=== PATIENT | male | born 1980 | race Caucasian/White ===

== ENCOUNTER 2024-04-21 11:43 | Emergency (ER) | payer OTHER, SELFPAY ==
--- NOTE | 2024-04-21 11:46 | ED.GENMED ---
ED Provider Triage
<Asha Arora PA-C - Last Filed: 04/21/24 11:49>
-
Patient seen by provider in Triage?: Seen in Triage
Attestation: A medical screening examination has been initiated by a qualified medical provider. Based on the assessment performed at this time, it has been determined that an emergent medical condition may exist and the patient has been informed
that further medical evaluation and possible additional diagnostic testing may be needed.
HPI: 44yoM here with R eye pain after an injury <2 hours ago. He believes a low hanging tree limb hit his eye while he was mowing grass. C/o severe eye pain. Believes he has a scratch or a FB.
GENERAL: Alert , in no apparent distress
EYE: No visual abnormalities.
NECK: Trachea midline
ENT: No visible abnormalities.
LUNGS: No acute respiratory distress
NEUROLOGICAL: Alert and oriented
SKIN: Skin intact. No visible changes.
MUSCULOSKELETAL: Moving extremities normally
PSYCH: Normal and appropriate interaction.
This is a medical evaluation conducted in person to initiate diagnostic evaluation and provide initial therapeutics. Please see further documentation by the treating clinician.
No clinical signs of globe rupture noted.
History of Present Illness
<Asha Arora PA-C - Last Filed: 04/21/24 11:49>
General
Chief Complaint: Eye Problems
Time Seen by Provider: 04/21/24 13:24
<KENNETH Ibarra - Last Filed: 04/21/24 14:44>
General
Source: patient
Exam Limitations: none
Nursing documentation reviewed up to this point in time: agreed with
History of Present Illness
History of Present Illness:
Patient is a 43-year-old male who presents to the ER for evaluation of right eye pain and injury. Patient was welding the grass and believes a branch poked him in his right eye. He complains of right eye irritation. Patient denies any decreased
vision. Patient denies any foreign body sensation.
Patient does not wear contacts/glasses .
Past History
<Asha Arora PA-C - Last Filed: 04/21/24 11:49>
Past History
ED Past Medical History: None
Social History
Living: with family
Employment: Employed
Review of Systems
<KENNETH Ibarra - Last Filed: 04/21/24 14:44>
Review of Systems
Allergies reviewed?: Yes
All Other Systems: ROS reviewed and negative except as documented in HPI and ROS
Constitutional: Reports no symptoms
EENT: Reports other (right eye irritation )
Musculoskeletal: Reports no symptoms
Skin: Reports no symptoms
Neurological: Reports no symptoms
Psychiatric: Reports no symptoms
Phy Exam
<KENNETH Ibarra - Last Filed: 04/21/24 14:44>
General Physical Exam
General Presentation: no apparent distress
General age: appears stated age
General Skin: warm and dry
General Habitus: normal
General Mental: alert
General Hydration: appears well hydrated
Eye Exam
Eye Exam: PERRL, EOMI and other (Right eye very injected on exam, with fluorescein there is an obvious corneal abrasion vertical in nature at the 12 o'clock position; lid inverted no foreign body under lid)
Eye Exam General: PERRL: bilateral and EOM intact: bilateral
Pupil Exam: Bilateral: round and reactive
Neurological Exam
Neurological Exam: alert and oriented x3
[place] Coma Scale
Eye Opening: Spontaneous
Verbal Response: Oriented
Motor Response: Obeys Commands
GCS Total Score: 15
Skin Exam
Skin Exam: normal color and warm/dry
Psychiatric Exam
Psychiatric Exam: normal mood/affect
Course
<Asha Arora PA-C - Last Filed: 04/21/24 11:49>
Orders/Labs/Results
Orders:
Orders
04/21/24 14:31
Erythromycin (Ilotycin) [Erythromycin 0.5% Ophthalmic Ointment] See Dose Instructions OPHTH NOW STA
04/21/24 14:32
Visual Acuity- Treatment ONCE
Ibuprofen [Motrin] 600 mg PO NOW STA
Vital Signs
Initial and Last Documented VS:
Initial Vital Signs
Temp Pulse Resp BP Pulse Ox
98.8 F 83 18 124/74 98
04/21/24 11:47 04/21/24 11:47 04/21/24 11:47 04/21/24 11:47 04/21/24 11:47
Last Documented Vital Signs
Temp Pulse Resp BP Pulse Ox
98.8 F 83 18 124/74 98
04/21/24 11:47 04/21/24 11:47 04/21/24 11:47 04/21/24 11:47 04/21/24 11:47
<KENNETH Ibarra - Last Filed: 04/21/24 14:44>
Orders/Labs/Results
Orders:
Orders
04/21/24 14:31
Erythromycin (Ilotycin) [Erythromycin 0.5% Ophthalmic Ointment] See Dose Instructions OPHTH NOW STA
04/21/24 14:32
Visual Acuity- Treatment ONCE
Ibuprofen [Motrin] 600 mg PO NOW STA
Vital Signs
Initial and Last Documented VS:
Initial Vital Signs
Temp Pulse Resp BP Pulse Ox
98.8 F 83 18 124/74 98
04/21/24 11:47 04/21/24 11:47 04/21/24 11:47 04/21/24 11:47 04/21/24 11:47
Last Documented Vital Signs
Temp Pulse Resp BP Pulse Ox
98.8 F 83 18 124/74 98
04/21/24 11:47 04/21/24 11:47 04/21/24 11:47 04/21/24 11:47 04/21/24 11:47
<KENNETH Ibarra - Last Filed: 04/21/24 14:44>
MDM/Problems Addressed
Differential Diagnosis Includes:
Not limited to foreign body, corneal abrasion less likely globe injury less likely hyphema
MDM/Problems Addressed:
Patient with corn abrasion to the right eye as documented no foreign body. Tetanus is up to date. Will DC with ibuprofen and erythromycin ointment with close outpatient provide ophthalmology
<KENNETH Ibarra - Last Filed: 04/21/24 14:44>
*Critical Care Note
Total Time (30-74mins, 75-104mins- exclusive of procedures): Not Applicable
ED Attending Note
<Asha Arora PA-C - Last Filed: 04/21/24 11:49>
-
Portions of this chart may have been created with voice recognition software.� Occasional wrong word or��sound alike� substitutions may have occurred due to the inherent limitations of voice recognition software.
Discharge Plan
Departure
Patient Disposition: Home (Routine Discharge)
Date of Disposition: 04/21/24
Time of Disposition: 14:37
Patient with high blood pressure during this ER visit?: No
Condition: Fair
Covid-19: Not Applicable
Discharge Problem:
Corneal abrasion
Instructions: Corneal Abrasion (DC)
Prescriptions:
New
erythromycin 5 mg/gram (0.5 %) ointment
1 applic ophthalmic (eye) Q6H Qty: 3.5 0RF
Rx Instructions:
Apply 1/2 inch of ointment into right eye 4 times daily
Referrals:
Sulema Alfaro MD [Active] -
NONE,* [Family Provider] -
Activity Restrictions/Additional Instructions:
As discussed you have a corneal abrasion. You were given the first dose erythromycin ophthalmic ointment here in the ER.
A prescription was sent to your pharmacy take as directed every 6 hours. You may also take ibuprofen as needed for discomfort and apply cool compress. Follow-up with ophthalmology in the next several days for reevaluation and recheck of your
symptoms. Please call today to make an appointment. Return if any worsening of symptoms of increased pain decreased vision ,drainage swelling fever/chills.
Interventions
Interventions:
*Risk Screen - Suicide Last Done: 04/21/24 12:01
*General Assessment Last Done: 04/21/24 12:01
*Neglect/Abuse Screening Last Done: 04/21/24 12:01
*ED COVID-19 Vaccine History Last Done: 04/21/24 11:51
Discharge Date and Time
Print Language: FAROESE
[2024-04-21 11:47] VITALS: BP 124/74
[2024-04-21] MEDS: ERYTHROMYCIN 0.5% OPHTHALMIC OINTMENT 1 APPLIC OPHTH (14:50)
== END 2024-04-21 15:32 | disposition home or self-care (01) ==
LOC: EMR 11:43
PROVIDERS: EMERGENCY PHYSICIAN Emergency Medicine
DX: S05.01XA Injury of conjunctiva and corneal abrasion without foreign body, right eye, initial encounter (principal); W22.8XXA Striking against or struck by other objects, initial encounter
CPT/HCPCS: 99283